=== PATIENT | female | born 1990 | race Caucasian/White ===

== ENCOUNTER → 2018-03-06 | Outpatient (CLI) | payer OTHER ==
[2018-03-06 18:23] VITALS: BP 145/85
[2018-03-06 19:45] VITALS: BP 132/85
--- NOTE | 2018-03-06 19:45 | NUR ---
Pt brought to room 105 for Rhogam IM injection. VSS. Pt given educational paperwork and packet info. IM injection given in RUE, tolerated well. Pt monitored for 15 mins afterwards, denies any s/s of reaction. Pt ambulated off unit with all belongings.
== END ==
LOC: OPINF 17:50
PROVIDERS: ATTEND Obstetrics & Gynecology
DX: O26.891 Other specified pregnancy related conditions, first trimester (principal); Z3A.01 Less than 8 weeks gestation of pregnancy
CPT/HCPCS: 36415; 86850; 86900; 86901; 96372; J2791

== ENCOUNTER → 2018-03-15 | Outpatient (CLI) | payer OTHER ==
[2018-03-06 19:45] VITALS: BP 132/85
--- NOTE | 2018-03-15 15:02 | RAD ---
Obstetrical ultrasound, 03/15/2018: HISTORY: size/date discrepancy Transabdominal scans were obtained. The uterus contains a single gestational sac. The gestational sac contains a pole demonstrating a crown-rump length of 1.8 cm suggesting a gestational age of 8 weeks and 2 days. This yields a sonographic EDC of 10/23/2018. Normal activity and heart motion were seen. The heart rate was 180 bpm. There is no evidence of subchorionic hemorrhage. The ovaries are of normal size. No adnexal mass is seen. No free fluid is evident in the pelvis. IMPRESSION: Single viable intrauterine fetus of 8-9 weeks gestational age. Electronically signed by: Codey Conte MD (03/15/2018 2:59 PM) [facility]
== END | disposition home or self-care (01) ==
LOC: US 13:45
PROVIDERS: ATTEND Obstetrics & Gynecology
DX: O26.841 Uterine size-date discrepancy, first trimester (principal); Z3A.09 9 weeks gestation of pregnancy
CPT/HCPCS: 76801

== ENCOUNTER → 2018-05-31 | Outpatient (CLI) | payer OTHER ==
[2018-03-06 19:45] VITALS: BP 132/85
--- NOTE | 2018-05-31 16:42 | RAD ---
Obstetrical ultrasound, 05/31/2018: HISTORY: Check size and dates There is a single intrauterine fetus in a cephalic orientation. The biparietal diameter measures 4.5 cm compatible with a gestational age of 19 weeks and 5 days. This corresponds well with the other measurements yielding a sonographic EDC of 10/20/2018. This correlates well with the EDC of 10/23/2018 established on the previous exam of 03/15/2018. Normal activity and heart motion were seen. A four-chamber heart is evident with a heart rate of 168 bpm. Fluid is evident in the bladder and stomach. The visualized portions of the spine and kidneys are unremarkable. A three-vessel umbilical cord is evident with a normal cord insertion site. A normal amount of amniotic fluid is present. The placenta lies posteriorly with no evidence of a placenta previa. The cervical length was estimated at 4.4 cm. IMPRESSION: Single viable intrauterine fetus of 19-20 weeks gestational age as described above, demonstrating normal interval growth since 03/15/2018. Electronically signed by: Codey Conte MD (05/31/2018 4:37 PM) [facility]
== END | disposition home or self-care (01) ==
LOC: US 14:43
PROVIDERS: ATTEND Specialist
DX: Z34.02 Encounter for supervision of normal first pregnancy, second trimester (principal); Z3A.20 20 weeks gestation of pregnancy
CPT/HCPCS: 76805